=== PATIENT | female | born 1990 | race Hispanic/Latino ===

== ENCOUNTER 2018-04-21 02:45 | Day surgery (SDC) | payer OTHER ==
[2018-04-21 03:18] VITALS: BP 118/72; TEMP 98.5; BMI 34.0
--- NOTE | 2018-04-21 05:21 | PDOC.LDHP ---
Labor and Delivery H&P Chief complaint: contractions HPI: 27 y/o G1 at 39w0d, patient of Dr. Alcala, presents with ctx for the last few hours. Denies VB, LOF, or decreased FM. ROS neg for HEENT, cv, pulm, gi, gu, neuro, psych, skin, musculoskeletal or constitutional symptoms other than mentioned above. OB History Details: First Current complications: none Past Medical History: None Current medications: pre-jeet vitamins Previous surgical history: other ([place] teeth) Allergies/Adverse Reactions: Allergies Allergy/AdvReac Type Severity Reaction Status Date / Time No Known Allergies Allergy Unverified 04/21/18 03:11 Social history: none - Physical Exam Vital signs reviewed and normal: yes General: NAD, resting Lungs: nonlabored breathing Abdomen: gravid Extremeties: no edema FHT: category 1 (120s, mod variability, + accels, occasional early decels) Pala contractions every: irregular q 2-5 mins - Vaginal Exam cm dilated: 1 (Unchanged after 2 hours) Effacement: 100% Station: -1 - OB Labs Blood type: O RH: negative - Assessment 27 y/o G1 at 39w0d with no e/o active labor. status reassuring with reactive NST. - Plan -: D/c home with precautions. Advised to return if sx persist and/or worsen.
== END 2018-04-21 05:25 | disposition home or self-care (01) ==
LOC: L&D/OP 02:45
PROVIDERS: ATTEND Obstetrics & Gynecology
DX: O47.1 False labor at or after 37 completed weeks of gestation (principal); Z3A.39 39 weeks gestation of pregnancy

== ENCOUNTER 2018-04-22 00:32 | Inpatient (IN) | payer OTHER ==
[2018-04-22] MEDS ORDERED: Butorphanol Tartrate 1 MG/ML VIAL SLOW IVP PRN (01:00)
[2018-04-22] MEDS ORDERED: Butorphanol Tartrate 1 MG/ML VIAL ONE (01:01)
[2018-04-22] MEDS: Lactated Ringer's 1,000 ML IV SCH ×5 (01:10→06:45)
--- NOTE | 2018-04-22 01:10 | PDOC.FPROB ---
FMR OB H&P: HPI - History of Present Illness Chief Complaint: contractions Indentification: 27 year old History of Present Illness: 27 year old at 39.0 wks with CLAUDE of 04/28/2018 presents with contractions. She presented earlier today with contractions and was noted to be 1 cm dilated and completely effaced. She made no cervical change and did not appear to be in labor earlier today. She states that since that time her contractions have become more intense and closer together. She denies vaginal bleeding, vaginal discharge, LoF. She endorses good movement. Primary Care Physician: Cari FMR OB H&P: Current - Care : 1 Para: 0 Gestational age: 39 Due date: 04/28/2018 - OB Labs Blood type: O RH: negative FMR OB H&P: History - Past Medical History PMH: None - OB History OB History: None - CLINICAL OB History CLINICAL OB History: None - Surgical History Sx History: [place] teeth - Social History Social History: Denies tobacco, alcohol, or drug use - Family History Family History: Noncontributory FMR OB H&P: Medications - Current Home Medications: Medication Instructions Recorded Confirmed Type Pnv73/Iron,Gluc/Folic/Dss/Dha 1 tab PO DAILY 04/21/18 04/21/18 History [Citranatal Assure Combo Pack] Allergies/Adverse Reactions: Allergies Allergy/AdvReac Type Severity Reaction Status Date / Time No Known Allergies Allergy Unverified 04/22/18 00:57 FMR OB H&P: ROS - Review of Systems General: denies: fever/chills, weight/appetite/sleep changes, fatigue Eyes: denies: vision changes, scotomas ENT: denies: nasal congestion, rhinorrhea, sore throat Cardiovascular: denies: chest pain, palpitation, edema Respiratory: denies: cough, congestion, shortness of breath Gastrointestinal: denies: abdominal pain, nausea, vomiting, diarrhea Genitourinary (Female): reports: polyuria, contractions. denies: dysuria Musculoskeletal: denies: pain Hematologic/Lymphatic: denies: prolonged or excessive bleeding Psychological: denies: depression, anxiety FMR OB H&P: Vital Signs - Maternal Vital signs: BP 114/72 Pulse 80's - Heart Tones Baseline: 120 Variability: moderate Acceleration: present Deceleration: absent Category: category 1 Anon Raices contractions every: q2-5 minutes FMR OB H&P: Physical Exam - Physical Exam General: NAD HEENT: MMM, grossly normal vision, grossly normal hearing Neck: supple Heart: pulses present, no edema General: no respiratory distress Abdomen: soft, gravid, non-tender Musculoskeletal: pulses present Neurological: no tremor, no focal deficit Skin: no rash, capillary refill <2 seconds Lymphatic: no unusual bruising or bleeding Psychiatric: intact recent and remote memory, good judgement and insight, normal mood and affect - Pelvic Exam Vulva: no masses, no lesions, no discharge, no blood Cervix: no masses, no lesions SVE: 2100/-1 by Bronwyn FMR OB H&P: A/P - Problem List (1) Intrauterine Current Visit: Yes Status: Acute Code(s): Z34.90 - ENCNTR FOR SUPRVSN OF NORMAL , UNSP, UNSP TRIMESTER Assessment and Plan: 27 year old at 39 wks 1. Contractions - Reactive NST - Contractions q2-5 minutes - Stadol for pain control - Initial cervical check 2/100/-1; repeat check 2 hours later was 3/100/-1 - Patient with painful contractions - Early labor; will admit to L&D for expectant management - Patient desires epidural for pain control 2. sIUP - See above Disposition: Stable. Admit to L&D for expectant management. Discussion: Date/Time: 04/22/18 0101 This H&P was discussed with Dr. Bangura who agrees with the above documentation and plan. Signature: Angelita Jacques, PGY-2
[2018-04-22 01:54] VITALS: BMI 34.0
[2018-04-22 02:14] LABS: Bilirubin Negative (Negative); Blood, Urine Moderate (Negative); Clarity CLEAR (Clear); Glucose, Urine (Dipstick) Negative (Negative); Leukocyte Negative (Negative); Nitrite Negative (Negative); Protein, Urine (Dipstick) Negative (Neg-Trace); Specific Gravity, Urine 1.013 (1.002-1.036); Urobilinogen 0.2 mg/dL (0.2-1.0)
[2018-04-22 02:17] LABS: Bacteria/HPF None Seen HPF (None Seen); Hyaline Casts/LPF 4-6 HYALINE CAST LPF (0-3 Hyaline); Pathc Cast-AUWi Flag 1.01 (0-2.49); RBC/HPF 21-50 HPF (0-3); Squamous Epithelial 0-3 HPF (0-3); WBC/HPF 0-3 HPF (0-3)
[2018-04-22] MEDS ORDERED: Lidocaine 1% (PF) 30 ML VIAL SC PRN (03:12)
[2018-04-22] MEDS ORDERED: NS / Oxytocin 40 units/1000ml 1,000 ML IV PRN (03:12)
[2018-04-22] MEDS ORDERED: Docusate 100 MG CAP PO PRN (03:12)
[2018-04-22] MEDS ORDERED: Acetaminophen 500 MG TAB PO PRN (03:12)
[2018-04-22] MEDS ORDERED: Ondansetron PF 4 MG/2 ML Vial IVP PRN ×3 (03:12→15:28)
[2018-04-22] MEDS ORDERED: Promethazine HCl 25 MG/ML VIAL IM PRN ×2 (03:12→04:26)
[2018-04-22] MEDS ORDERED: Ibuprofen 800 MG TAB PO PRN (03:12)
--- NOTE | 2018-04-22 03:15 | PDOC.EVN ---
Event Note - Event Note Event Note: OBGYN Attending H&P Patient of Dr Alcala (currently out) EGA 39 weeks CC: contractions 27 yo G1 at 39 weeks with contractions. No VB, no LOF, no OLIVERA. Past medical: neg Allergies: None Physical: VSAFEB Cx: 2-3100/0 No VB Monitor: class I, contractions present A/P: term, early labor. check GBS status Pain meds Await labor progress
--- NOTE | 2018-04-22 03:19 | PDOC.EVN ---
Event Note - Event Note Event Note: GBS negative
[2018-04-22 03:26] LABS: Hemoglobin 12.1 g/dL (12.0-16.0); Mean Corpuscular HGB CONC 33.9 g/dL (32.0-36.0); Mean Corpuscular Hemoglobin 29.4 pg (27.0-31.0); Mean Corpuscular Volume 86.7 fL (78.0-98.0); Mean Platelet Volume 9.5 fL (7.4-10.4); Platelet Count 256 thou/uL (130-400); RBC Distribution Width 13.6 % (11.5-14.5); Red Blood Cell (RBC) Count 4.11 mill/uL (4.20-5.40); White Blood Cell (WBC) Count 11.7 thou/uL (4.8-10.8)
[2018-04-22] MEDS ORDERED: Fentanyl 4 mcg/Bup 0.1% Cadd 100 ML ONE ×2 (03:27→12:19)
[2018-04-22 04:09] LABS: HBSAg Index 0.19 S/CO (0-0.99); Hep B Surf Ag Non-Reactive S/CO (NonReactive)
[2018-04-22] MEDS ORDERED: PHENYLEPHRINE-NS 100 MCG/ML 10 ML SYRINGE ONE (04:19)
[2018-04-22] MEDS ORDERED: Lactated Ringer's 500 ML IV PRN (04:26)
[2018-04-22] MEDS ORDERED: Naloxone HCl 0.4 mg/ml Vial IVP PRN ×2 (04:26)
[2018-04-22] MEDS ORDERED: diphenhydrAMINE 50 MG/ML VIAL IVP PRN (04:26)
[2018-04-22] MEDS ORDERED: ePHEDrine/0.9% NaCl/PF SYRINGE 50 mg/10 ml SLOW IVP PRN (04:26)
[2018-04-22] MEDS ORDERED: Acetaminophen 325 MG TAB PO PRN (04:26)
[2018-04-22] MEDS ORDERED: Eucerin (Mineral Oil/Petrolatum,White) 30 gm Jar TOP PRN (04:26)
[2018-04-22] MEDS ORDERED: Fentanyl 4 mcg/Bupivacaine 0.1% Cassette 100 ML EPIDURAL SCH (04:30)
[2018-04-22] MEDS ORDERED: Communication Order-Pharmacy FS SCH (04:30)
[2018-04-22 04:43] LABS: Syphilis Antibody Nonreactive (Nonreactive); Syphilis Antibody Index 0.06 S/CO (<1.00 Non-Reactive)
--- NOTE | 2018-04-22 07:08 | PDOC.EVN ---
Event Note - Event Note Event Note: L&D follow up: Last exam around 5cm (approx 0430)...with follow up RN exam exam=6cm at 0700. Await delivery
[2018-04-22] MEDS ORDERED: Lanolin Ointment 7 GM TUBE TOP PRN (15:28)
[2018-04-22] MEDS ORDERED: diphenhydrAMINE 25 MG CAP PO PRN (15:28)
[2018-04-22] MEDS ORDERED: Bisacodyl 10 MG SUPP PR PRN (15:28)
[2018-04-22] MEDS ORDERED: Adacel (T-DAP) 0.5 ML VIAL IM ONE (15:28)
[2018-04-22] MEDS ORDERED: Misoprostol 200 MCG TAB VAG PRN (15:28)
[2018-04-22] MEDS ORDERED: Milk Of Magnesia 30 ML UDCUP PO PRN (15:28)
[2018-04-22] MEDS ORDERED: Preparation H Ointment 28 GM TUBE PR PRN (15:28)
[2018-04-22] MEDS ORDERED: Benzocaine/Menthol 20-0.5% 60 ML CAN TOP PRN (15:28)
[2018-04-22] MEDS ORDERED: NS / Oxytocin 40 units/1000ml 1,000 ML IV SCH (15:30)
--- NOTE | 2018-04-22 16:11 | PDOC.OPDEL ---
OB Operative/Delivery Note Delivery Dr/Surgeon: Enoc Assist: Attending: Clinton Pre-Delivery Diagnosis: active labor Procedure/Post Delivery Dx: spontaneous vaginal delivery Weeks gestation: 39 Anesthesia: epidural - Findings A Sex: female - 1 min: 9 - 5 min: 9 - Additional Findings/Plan Placenta delivered: spontaneous Repaired Obstetrical Laceration: vaginal (right) Compilations/Other Findings: Delivering Physician: Dr. Enoc Britton Attending: Dr. Alonzo Procedure: Spontaneous Vaginal Delivery Anesthesia: epidural EBL: 403 Pre-op Diagnosis: 1. Term intrauterine in labor Post-op Diagnosis: 1. Term intrauterine , delivered Indications: A 27 y/o female G1 presents in active labor. Delivery Note: This is 27 yo F G1 @39wks who delivered a viable F at 1457. Following an uneventful antepartum course, a vigorous female was delivered over an intact perineum in the occipitoanterior position. Anterior Shoulder and then remainder of the body delivered. No nuchal cord. The head was held down and mouth and nares were bulb suctioned. Cord clamped and cut and cord blood collected. Placenta delivered intact with a 3 vessel cord noted. Fundal massage was performed and the fundus was firm. The cervix and vagina were inspected and found to have a vaginal side wall (right) laceration and first degree perineal laceration noted. Both lacerations were repaired with a 3- 0 chromic SH suture in the usual fashion with good approximation and hemostasis. went to nursery in good condition for routine care. Apgars were 9/9at 1 & 5 minutes, respectively. Patient tolerated delivery well and went to after routine recovery/care. Post delivery plan: routine recovery <Fabiola Stubbs - Last Filed: 04/22/18 16:16> Attending Addendum - Attending Addendum Date/Time: 04/22/18 4160 I was present and scrubbed for the entire delivery with Dr. Stubbs. Delivery uncomplicated. 1st degree laceration and right vaginal laceration repaired. <Clarisa Alonzo - Last Filed: 04/22/18 22:36>
[2018-04-22] MEDS: Ferrous Sulfate 325 MG TAB PO SCH (18:58)
[2018-04-22] MEDS: Docusate Calcium (SURFAK) 240 MG CAP PO SCH (21:13)
[2018-04-22] MEDS: Ibuprofen 800 MG TAB PO SCH (21:14)
[2018-04-23] MEDS: Ibuprofen 800 MG TAB PO SCH ×3 (05:11→22:39)
[2018-04-23 05:29] LABS: Hemoglobin 8.8 g/dL (12.0-16.0); Mean Corpuscular HGB CONC 33.3 g/dL (32.0-36.0); Mean Corpuscular Hemoglobin 29.3 pg (27.0-31.0); Mean Platelet Volume 7.7 fL (7.4-10.4); Platelet Count 198 thou/uL (130-400); RBC Distribution Width 13.6 % (11.5-14.5); Red Blood Cell (RBC) Count 3.02 mill/uL (4.20-5.40); White Blood Cell (WBC) Count 19.8 thou/uL (4.8-10.8)
--- NOTE | 2018-04-23 07:51 | PDOC.PP ---
Post Progress Note Post Day #: 1 Subjective: Doing well without complaints. Denies Pain, lochia slowing down. PO intake tolerated: yes Flatus: yes Ambulation: yes Vital Signs (12 hours) Temp Pulse Resp BP 04/23/18 05:10 97.8 F 76 16 91/54 L 04/23/18 01:05 97.7 F 75 16 93/51 L 04/22/18 20:00 98.1 F 99 16 107/57 L Weight Weight 198 lb - Physical Examination General: NAD Respiratory: non-labored breathing Abdominal: lochia (normal), no distention, appropriately TTP Fundus firm & at: U-4 Neurological: no gross focal deficits Psychiatric: A&Ox3, normal affect Result Diagrams: 04/23/18 05:05 Additional Labs: Post Labs Blood Type O NEGATIVE 04/22/18 03:17 Hep Bs Antigen Non-Reactive S/CO (NonReactive) 04/22/18 03:17 (1) (spontaneous vaginal delivery) Code(s): O80 - ENCOUNTER FOR FULL-TERM UNCOMPLICATED DELIVERY Status: Acute - Assessment/Plan Doing well PPD1. Continue routine management. Anticipate d/c home tomorrow.
[2018-04-23] MEDS: Prenatal Vitamin 1 TAB PO SCH (08:10)
[2018-04-23] MEDS: Docusate Calcium (SURFAK) 240 MG CAP PO SCH ×2 (08:10→20:55)
[2018-04-23] MEDS: Ferrous Sulfate 325 MG TAB PO SCH ×3 (08:13→18:04)
[2018-04-23] MEDS ORDERED: Lidocaine 2% MPF 10 ML AMP (For Epidural Use) ONE (14:41)
[2018-04-23] MEDS ORDERED: ePHEDrine/0.9% NaCl/PF SYRINGE 50 mg/10 ml ONE (14:41)
[2018-04-23] MEDS ORDERED: Bupivacaine/Epinephrine 0.25% 30 ML VIAL ONE (14:41)
[2018-04-24] MEDS: Ibuprofen 800 MG TAB PO SCH (06:10)
--- NOTE | 2018-04-24 07:40 | PDOC.PP ---
Post Progress Note Post Day #: 2 PO intake tolerated: yes Flatus: yes Ambulation: yes Vital Signs (12 hours) Temp Pulse Resp BP Pulse Ox 04/23/18 20:00 98.1 F 95 18 108/59 L 98 Weight Weight 198 lb - Physical Examination Abdominal: + bowel sounds, lochia, no distention, appropriately TTP Extremities: negative homans (B) Psychiatric: normal affect Result Diagrams: 04/23/18 05:05 Additional Labs: Post Labs Blood Type O NEGATIVE 04/22/18 03:17 Hep Bs Antigen Non-Reactive S/CO (NonReactive) 04/22/18 03:17 - Assessment/Plan post day 2 from . Doing well. D/c home. RTC 6 weeks.
[2018-04-24] MEDS: Docusate Calcium (SURFAK) 240 MG CAP PO SCH (08:41)
[2018-04-24] MEDS: Prenatal Vitamin 1 TAB PO SCH (08:41)
[2018-04-24] MEDS: Ferrous Sulfate 325 MG TAB PO SCH (08:43)
[2018-04-24 08:49] VITALS: BP 121/68; TEMP 98.4
== END 2018-04-24 10:15 | disposition home or self-care (01) | DRG 807 ==
LOC: L&D/OP 00:32 → L&D 03:43 → 3SW 17:27
PROVIDERS: ADMIT Obstetrics & Gynecology; ATTEND Obstetrics & Gynecology
PROC: 10E0XZZ Delivery of Products of Conception, External Approach (ICD-10-PCS; principal; 2018-04-22)
PROC: 0HQ9XZZ Repair Perineum Skin, External Approach (ICD-10-PCS; 2018-04-22)
PROC: 4A0HXCZ Measurement of Products of Conception, Cardiac Rate, External Approach (ICD-10-PCS; 2018-04-22)
DX: O70.0 First degree perineal laceration during delivery (principal); Z37.0 Single live birth; Z3A.39 39 weeks gestation of pregnancy
CPT/HCPCS: 36415; 51701; 51702; 81003; 81015; 85027; 85461; 86780; 86850; 86900; 86901; 87340; 90384; 96372; 99283; 99285; J0595; J2001; J2405